=== PATIENT | male | born 1975 | race Caucasian/White ===

== ENCOUNTER 2017-06-08 04:21 | Inpatient (IN) | payer OTHER, SELFPAY ==
[2017-06-08 05:09] LABS: Prothrombin Time 13.8 SEC (12.0-14.7)
[2017-06-08 05:11] LABS: ALT (SGPT) 9 U/L (8-55); AST (SGOT) 8 U/L (5-34); Alkaline Phosphatase 68 U/L (40-150); Anion Gap 15 mmol/L (10-20); BUN (Urea Nitrogen) 14 mg/dL (8.9-20.6); Bilirubin, Total 0.2 mg/dL (0.2-1.2); Calc. Creatinine Clearance 0 mL/min (70-130); Calcium 8.8 mg/dL (7.8-10.44); Carbon Dioxide 19 mmol/L (22-29); Chloride 107 mmol/L (98-107); Estimated GFR-MDRD 59; Globulin 2.6 g/dL (2.4-3.5); Lipase 33 U/L (8-78); Protein, Total 6.4 g/dL (6.0-8.3)
[2017-06-08 05:25] LABS: Troponin I Less than 0.010 ng/mL (< 0.028)
[2017-06-08 05:37] LABS: Band 2 % (5-11); Hematocrit 40.3 % (42.0-52.0); Mean Platelet Volume 6.7 fL (7.4-10.4); Neutrophil 87 % (42-75); PTT 18.6 SEC (22.9-36.1); Red Blood Cell (RBC) Count 4.39 mill/uL (4.70-6.10); White Blood Cell (WBC) Count 25.5 thou/uL (4.8-10.8)
[2017-06-08 06:16] VITALS: BMI 28.5
[2017-06-08] MEDS ORDERED: HYDROcodone/Acetaminophen 5/325 mg Tablet PO PRN ×2 (06:22)
[2017-06-08] MEDS ORDERED: Ondansetron ODT 4 MG TAB SL PRN (06:22)
[2017-06-08] MEDS ORDERED: Acetaminophen 325 MG TAB PO PRN (06:22)
[2017-06-08] MEDS ORDERED: Ondansetron HCl/PF 4 MG/2 ML Vial IVP PRN (06:22)
[2017-06-08] MEDS ORDERED: Sodium Chloride 0.9% 1,000 ML IV SCH (06:22)
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
[2017-06-08] MEDS ORDERED: Dextrose 50% Abboject 50 ML SYRINGE SLOW IVP PRN (09:07)
[2017-06-08] MEDS ORDERED: Promethazine HCl 25 MG/ML VIAL IM PRN ×2 (09:07)
[2017-06-08] MEDS ORDERED: Dextrose 5% in Water 1,000 ML IV PRN (09:07)
[2017-06-08] MEDS ORDERED: traMADol HCl 50 MG TAB PO PRN (09:59)
[2017-06-08 10:01] LABS: Hematocrit 35.8 % (42.0-52.0)
[2017-06-08] MEDS: traMADol HCl 50 MG TAB PO PRN ×3 (10:35→22:26)
[2017-06-08] MEDS: Acetaminophen 325 MG TAB PO SCH ×3 (10:38→22:27)
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
[2017-06-08] MEDS ORDERED: ISOVUE-370 76%-LOCM 1 ML ONE (14:57)
[2017-06-08 15:28] LABS: Hematocrit 36.9 % (42.0-52.0)
[2017-06-08] MEDS: HYDROcodone/Acetaminophen 10/325 mg Tablet PO PRN (17:47)
[2017-06-08] MEDS: Famotidine 20 MG TAB PO SCH (20:27)
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
[2017-06-09] MEDS: Acetaminophen 325 MG TAB PO SCH ×4 (04:21→22:49)
[2017-06-09 06:01] LABS: #Basophils 0.1 thou/uL (0.0-0.2); #Eosinphils 0.3 thou/uL (0.0-0.7); #Lymphocytes 3.1 thou/uL (1.20-3.40); #Monocytes 1.1 thou/uL (0.11-0.59); #Neutrophils 7.9 thou/uL (1.40-6.50); %Basophils 0.5 % (0.0-1.0); %Eosinophils 2.3 % (0.0-10.0); %Lymphocytes 25.1 % (21.0-51.0); %Monocytes 8.9 % (0.0-10.0); Hematocrit 32.2 % (42.0-52.0); Mean Platelet Volume 6.7 fL (7.4-10.4); Red Blood Cell (RBC) Count 3.53 mill/uL (4.70-6.10); White Blood Cell (WBC) Count 12.4 thou/uL (4.8-10.8)
[2017-06-09 06:03] LABS: Hematocrit 32.7 % (42.0-52.0)
[2017-06-09] MEDS: HYDROcodone/Acetaminophen 10/325 mg Tablet PO PRN ×2 (06:06→12:10)
[2017-06-09] MEDS ORDERED: FLU VACC QS2017-18 36 mo. & older 0.5 ML SYRINGE IM ONE (09:00)
[2017-06-09] MEDS: Senokot S 8.6-50 MG TAB PO SCH ×2 (09:03→20:00)
[2017-06-09] MEDS: Famotidine 20 MG TAB PO SCH ×2 (09:04→20:00)
[2017-06-09] MEDS: Polyethylene Glycol 3350 17 GM Packet PO SCH (09:15)
[2017-06-09] MEDS: Magnesium Citrate 300 ML BOT PO SCH ×2 (10:51→14:18)
--- NOTE | 2017-06-09 13:30 | PRG ---
DATE OF SERVICE: 06/09/2017 TIME OF ENCOUNTER: 09:15 a.m. SUBJECTIVE: No acute events overnight. The patient is doing well. He is tolerating regular diet. No nausea and no vomiting. He has not had a bowel movement yet. We will assist him in that. Hemoglobin has trended from admission, on 06/08, at 12.7 to 10.6. OBJECTIVE: VITAL SIGNS: 97.7 on the temperature, 84 on the heart rate, 20 on the respiratory rate, 94% on room air, 106/60 on the blood pressure. GENERAL: He is in no acute distress. GCS 15. PULMONARY: Clear via auscultation via bilaterally. CARDIOVASCULAR: S1, S2, regular rate and rhythm. ABDOMEN: Soft, nontender, nondistended. EXTREMITIES: Moving all four extremities. LABORATORY DATA: Hemoglobin as stated before. No radiologic findings. ASSESSMENT AND PLAN: This is a 41-year-old male, who had some abdominal painHe was at a different acility and had a noncontrast CAT scan showed a large amount of fluid in the abdomen. Contrast stud y done. Plan will be to check the stability of the hemoglobin. We will consult with attending on-c all in regards. He is tolerating a regular diet, pain is controlled. The patient will be hopefully anticipated discharged later today. He has been ambulating. No other restrictions at this time.
[2017-06-09] MEDS: traMADol HCl 50 MG TAB PO PRN (18:15)
[2017-06-10 04:48] VITALS: TEMP 98.4
[2017-06-10 05:48] LABS: #Eosinphils 0.4 thou/uL (0.0-0.7); #Lymphocytes 2.3 thou/uL (1.20-3.40); #Neutrophils 5.4 thou/uL (1.40-6.50); %Basophils 0.4 % (0.0-1.0); %Lymphocytes 25.3 % (21.0-51.0); %Monocytes 10.5 % (0.0-10.0); Hematocrit 30.5 % (42.0-52.0); Mean Platelet Volume 6.7 fL (7.4-10.4); Red Blood Cell (RBC) Count 3.32 mill/uL (4.70-6.10); White Blood Cell (WBC) Count 9.1 thou/uL (4.8-10.8)
[2017-06-10] MEDS: traMADol HCl 50 MG TAB PO PRN (06:00)
[2017-06-10] MEDS: Acetaminophen 325 MG TAB PO SCH ×2 (06:01→11:13)
[2017-06-10 08:32] VITALS: BP 100/63
[2017-06-10] MEDS: Famotidine 20 MG TAB PO SCH (09:02)
[2017-06-10] MEDS: Polyethylene Glycol 3350 17 GM Packet PO SCH (09:02)
[2017-06-10] MEDS: Senokot S 8.6-50 MG TAB PO SCH (09:02)
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
== END 2017-06-10 10:52 | disposition home or self-care (01) | DRG 816 ==
LOC: ERS 04:21 → CCU 05:18 → SURG A 16:01
PROVIDERS: ADMIT Surgery; ATTEND Surgery
DX: S36.039A Unspecified laceration of spleen, initial encounter (principal); I95.9 Hypotension, unspecified; I10 Essential (primary) hypertension; S93.401A Sprain of unspecified ligament of right ankle, initial encounter; F17.210 Nicotine dependence, cigarettes, uncomplicated; F17.220 Nicotine dependence, chewing tobacco, uncomplicated; Z82.49 Family history of ischemic heart disease and other diseases of the circulatory system; X58.XXXD Exposure to other specified factors, subsequent encounter; V86.99XA Unspecified occupant of other special all-terrain or other off-road motor vehicle injured in nontraffic accident, initial encounter
CPT/HCPCS: 36415; 71260; 74177; 80053; 82553; 83690; 84484; 85014; 85018; 85025; 85610; 85730; 86850; 86900; 86901; 90471; 90682; 93005; 94640; 96374; G0008; J2270; J7620; Q2036